=== PATIENT | female | born 1985 | race Hispanic/Latino ===

== ENCOUNTER 2017-10-03 13:34 | Emergency (ER) | payer BC ==
[2017-10-03] MEDS ORDERED: HYDROCODONE/APAP 5/325 MG TAB ONE (13:55)
--- NOTE | 2017-10-03 14:44 | RAD REPORT ---
EXAM DESCRIPTION: RAD - Ankle Right 3 View - 10/03/2017 2:33 pm CLINICAL HISTORY: Pain and swelling. COMPARISON: None. FINDINGS: Moderate soft tissue swelling is seen adjacent to the lateral malleolus. No acute fracture or dislocation seen.
--- NOTE | 2017-10-03 14:54 | EDPHYS ---
Physician Documentation [facility] Name: Carli Jang Age: 32 yrs Sex: Female : 1985 Arrival Date: 10/03/2017 Time: 13:36 Bed 17 Private MD: None, None ED Physician Rohan Lee HPI: 10/03 14:08 This 32 yrs old Female presents to ER via Ambulatory with complaints of Ankle kb Injury. 14:08 The patient presents with pain, that is acute. The complaints affect the right ankle. kb Onset: The symptoms/episode began/occurred just prior to arrival. Context: The problem was sustained at home, resulted from twisting while walking, The patient can partially bear weight on the affected extremity. the patient is able to ambulate. Associated signs and symptoms: Pertinent positives: swelling, Pertinent negatives: calf tenderness, fever, nausea, numbness, rash, tingling, vomiting, warmth, weakness. Modifying factors: The symptoms are alleviated by nothing, the symptoms are aggravated by nothing. Severity of symptoms: At their worst the symptoms were moderate, in the emergency department the symptoms are unchanged. The patient has not experienced similar symptoms in the past. The patient has not recently seen a physician. DITCHER: 13:47 LMP 09/08/2017 em Historical: - Allergies: 13:47 No Known Allergies; em - Home Meds: 13:47 amlodipine oral [Active]; metoprolol tartrate oral [Active]; em - PMHx: 13:47 Hypertension; em - PSHx: 13:47 None; em - Immunization history:: Adult Immunizations up to date. - Social history:: Smoking status: Patient/guardian denies using tobacco. ROS: 14:08 Constitutional: Negative for fever, chills, and weight loss, ENT: Negative for injury, kb pain, and discharge, Neck: Negative for injury, pain, and swelling, Cardiovascular: Negative for chest pain, palpitations, and edema, Respiratory: Negative for shortness of breath, cough, wheezing, and pleuritic chest pain, Abdomen/GI: Negative for abdominal pain, nausea, vomiting, diarrhea, and constipation, Back: Negative for injury and pain, : Negative for injury, bleeding, discharge, and swelling, Skin: Negative for injury, rash, and discoloration, Neuro: Negative for headache, weakness, numbness, tingling, and seizure. 14:11 MS/extremity: Positive for injury or acute deformity, pain, swelling, tenderness, of kb the right ankle. Exam: 14:07 Constitutional: This is a well developed, well nourished patient who is awake, alert, kb and in no acute distress. Head/Face: Normocephalic, atraumatic. Chest/axilla: Normal chest wall appearance and motion. Nontender with no deformity. No lesions are appreciated. Cardiovascular: Regular rate and rhythm with a normal S1 and S2. No gallops, murmurs, or rubs. Normal PMI, no JVD. No pulse deficits. Respiratory: Lungs have equal breath sounds bilaterally, clear to auscultation and percussion. No rales, rhonchi or wheezes noted. No increased work of breathing, no retractions or nasal flaring. Abdomen/GI: Soft, non-tender, with normal bowel sounds. No distension or tympany. No guarding or rebound. No evidence of tenderness throughout. Back: No spinal tenderness. No costovertebral tenderness. Full range of motion. Skin: Warm, dry with normal turgor. Normal color with no rashes, no lesions, and no evidence of cellulitis. Neuro: Awake and alert, GCS 15, oriented to person, place, time, and situation. Cranial nerves II-XII grossly intact. Motor strength 5/5 in all extremities. Sensory grossly intact. Cerebellar exam normal. Normal gait. 14:11 Musculoskeletal/extremity: Extremities: grossly normal except: noted in the right kb ankle: pain, swelling, tenderness, ROM: limited active range of motion due to pain, in the right ankle, Circulation is intact in all extremities. Sensation intact. Weight bearing: can bear weight with assistance only. Vital Signs: 13:47 BP 156 / 85; Pulse 87; Resp 18; Temp 98.4(O); Pulse Ox 97% on R/A; Weight 112.49 kg; em Height 5 ft. 8 in. (172.72 cm); Pain 10/10; 15:00 BP 135 / 88; Pulse 79; Resp 17; Pulse Ox 98% on R/A; rk2 13:47 Body Mass Index 37.71 (112.49 kg, 172.72 cm) em MDM: 13:44 Patient medically screened. 14:07 Data reviewed: vital signs, nurses notes. Data interpreted: Pulse oximetry: on room air kb is 97 %. Interpretation: normal. 14:52 Counseling: I had a detailed discussion with the patient and/or guardian regarding: the kb historical points, exam findings, and any diagnostic results supporting the discharge/admit diagnosis, radiology results, the need for outpatient follow up, a orthopedic surgeon, to return to the emergency department if symptoms worsen or persist or if there are any questions or concerns that arise at home. 10/03 13:44 Order name: Ankle Right 3 View XRAY; Complete Time: 14:45 kb 10/03 14:53 Order name: Solitario Wrap; Complete Time: 15:17 kb 10/03 14:53 Order name: Crutches; Complete Time: 15:17 kb Administered Medications: 14:00 Drug: [place] 5 mg-325 mg 1 tabs Route: PO; em 14:52 Follow up: Response: No adverse reaction; Pain is decreased em Disposition: 10/03/17 14:53 Discharged to Home. Impression: Sprain of other ligament of right ankle. - Condition is Stable. - Discharge Instructions: Ankle Sprain, [id number]. - Prescriptions for Diclofenac Sodium 75 mg Oral Tablet, Delayed Release (E.C.) - take 1 tablet by ORAL route 2 times per day As needed; 30 tablet. - Medication Reconciliation Form, Thank You Letter, Antibiotic Education, Prescription Opioid Use form. - Follow up: Emergency Department; When: As needed; Reason: Worsening of condition. Follow up: Private Physician; When: 2 - 3 days; Reason: Recheck today's complaints, Continuance of care, Re-evaluation by your physician. Addendum: 10/05/2017 08:48 Co-signature as Attending Physician, Rohan Lee MD I agree with the assessment and c fernandez plan of care. Signatures: Dispatcher [employer] Angely Saldivar, HONING MACHINE OPERATOR TOOL-C HONING MACHINE OPERATOR TOOL-Rohan Corral MD MD cha Munoz, Edgar, PROGRAMMER DEVELOPER PROGRAMMER DEVELOPER em Michell Duarte, RN RN rk2 Corrections: (The following items were deleted from the chart) 10/03 14:11 14:08 Constitutional: Negative for fever, chills, and weight loss, ENT: Negative for kb injury, pain, and discharge, Neck: Negative for injury, pain, and swelling, Cardiovascular: Negative for chest pain, palpitations, and edema, Respiratory: Negative for shortness of breath, cough, wheezing, and pleuritic chest pain, Back: Negative for injury and pain, : Negative for injury, bleeding, discharge, and swelling, MS/Extremity: Negative for injury and deformity, Skin: Negative for injury, rash, and discoloration, Neuro: Negative for headache, weakness, numbness, tingling, and seizure, kb 14:11 14:08 Abdomen/GI: Positive for abdominal pain, nausea, vomiting, and diarrhea, Negative kb for constipation, abdominal cramps, abdominal distension, anorexia, kb 14:12 14:07 Constitutional: This is a well developed, well nourished patient who is awake, kb alert, and in no acute distress. Head/Face: Normocephalic, atraumatic. Chest/axilla: Normal chest wall appearance and motion. Nontender with no deformity. No lesions are appreciated. Cardiovascular: Regular rate and rhythm with a normal S1 and S2. No gallops, murmurs, or rubs. Normal PMI, no JVD. No pulse deficits. Respiratory: Lungs have equal breath sounds bilaterally, clear to auscultation and percussion. No rales, rhonchi or wheezes noted. No increased work of breathing, no retractions or nasal flaring. Back: No spinal tenderness. No costovertebral tenderness. Full range of motion. Skin: Warm, dry with normal turgor. Normal color with no rashes, no lesions, and no evidence of cellulitis. MS/ Extremity: Pulses equal, no cyanosis. Neurovascular intact. Full, normal range of motion. Neuro: Awake and alert, GCS 15, oriented to person, place, time, and situation. Cranial nerves II-XII grossly intact. Motor strength 5/5 in all extremities. Sensory grossly intact. Cerebellar exam normal. Normal gait. kb 14:12 14:07 Abdomen/GI: Inspection: abdomen appears normal, Bowel sounds: normal, in all kb quadrants, Palpation: soft, in all quadrants, moderate abdominal tenderness, in the right upper quadrant and left upper quadrant, kb
--- NOTE | 2017-10-03 14:54 | ER ---
Nurse's Notes [facility] Name: Carli Jang Age: 32 yrs Sex: Female : 1985 Arrival Date: 10/03/2017 Time: 13:36 Bed 17 Private MD: None, None Diagnosis: Sprain of other ligament of right ankle Presentation: 10/03 13:44 Presenting complaint: Patient states: was walking and rolled right ankle about an hour em ago, denies hitting head, swelling noted to the right ankle. Transition of care: patient was not received from another setting of care. Onset of symptoms was October 03, 2017. Initial Sepsis Screen: Does the patient meet any 2 criteria? No. Patient's initial sepsis screen is negative. Does the patient have a suspected source of infection? No. Patient's initial sepsis screen is negative. Care prior to arrival: None. 13:44 Method Of Arrival: Ambulatory em 13:48 Acuity: CHRISTOPHER 4 la1 Triage Assessment: 13:49 General: Appears in no apparent distress. uncomfortable, Behavior is cooperative, em anxious. Pain: Complains of pain in right lateral malleolus Pain currently is 10 out of 10 on a pain scale. Quality of pain is described as sharp, throbbing. Musculoskeletal: Range of motion: intact in right ankle Swelling present in right lateral malleolus. PHYSICIAN PRIMARY CARE SPORTS MEDICINE: 13:47 LMP 09/08/2017 em Historical: - Allergies: 13:47 No Known Allergies; em - Home Meds: 13:47 amlodipine oral [Active]; metoprolol tartrate oral [Active]; em - PMHx: 13:47 Hypertension; em - PSHx: 13:47 None; em - Immunization history:: Adult Immunizations up to date. - Social history:: Smoking status: Patient/guardian denies using tobacco. Screenin:49 Abuse screen: Denies threats or abuse. Nutritional screening: No deficits noted. em Tuberculosis screening: No symptoms or risk factors identified. Fall Risk None identified. Assessment: 13:50 General: Appears in no apparent distress. uncomfortable, Behavior is cooperative, em anxious. Pain: Complains of pain in right foot Pain currently is 10 out of 10 on a pain scale. Quality of pain is described as throbbing. Neuro: Level of Consciousness is awake, alert, obeys commands, Oriented to person, place, time, situation. Cardiovascular: Capillary refill < 3 seconds Patient's skin is warm and dry. Respiratory: Airway is patent Respiratory effort is even, unlabored, Respiratory pattern is regular, symmetrical. GI: Abdomen is round. : No signs and/or symptoms were reported regarding the genitourinary system. EENT: No signs and/or symptoms were reported regarding the EENT system. Derm: Skin is intact, Skin is pink, warm \T\ dry. Musculoskeletal: Range of motion: limited in right ankle. 13:55 Reassessment: Patient appears in no apparent distress at this time. No changes from iw previously documented assessment. I agree with above assessment by Ferdinand Ca LVN. 14:50 Reassessment: Patient appears in no apparent distress at this time. Patient and/or em family updated on plan of care and expected duration. Pain level reassessed. Patient is alert, oriented x 3, equal unlabored respirations, skin warm/dry/pink. 15:18 Reassessment: Solitario wrap placed on right ankle... educated on crutches. Pt. was able to rk2 ambulate out on her own without difficulty. Vital Signs: 13:47 BP 156 / 85; Pulse 87; Resp 18; Temp 98.4(O); Pulse Ox 97% on R/A; Weight 112.49 kg; em Height 5 ft. 8 in. (172.72 cm); Pain 10/10; 15:00 BP 135 / 88; Pulse 79; Resp 17; Pulse Ox 98% on R/A; rk2 13:47 Body Mass Index 37.71 (112.49 kg, 172.72 cm) em ED Course: 13:36 Patient arrived in ED. mr 13:36 None, None is Private Physician. mr 13:38 [facility]C [facility] kb 13:38 Rohan Lee MD is Attending Physician. kb 13:44 Ferdinand Ca LVN is Primary Nurse. em 13:47 Arm band placed on. em 13:48 Triage completed. la1 13:49 No provider procedures requiring assistance completed. Patient did not have IV access em during this emergency room visit. 13:50 Patient has correct armband on for positive identification. Bed in low position. Call em light in reach. Side rails up X 1. Adult w/ patient. 14:33 Ankle Right 3 View XRAY In Process Unspecified. EDMS Administered Medications: 14:00 Drug: [place] 5 mg-325 mg 1 tabs Route: PO; em 14:52 Follow up: Response: No adverse reaction; Pain is decreased em Outcome: 14:53 Discharge ordered by . gabby 15:19 Discharged to home ambulatory. rk2 15:19 Condition: good 15:19 Discharge instructions given to patient, Prescriptions given X 1. 15:20 Patient left the ED. rk2 Signatures: Dispatcher [employer] EDMS Angely Diaz, SPECTRAL SCIENTIST-C SPECTRAL SCIENTIST-CkHilda Gotti mr Roby, Ferdinand, REFERENCE DATA EXPERT REFERENCE DATA EXPERT em Liliam Flores, RN RN iw Rod Melendez RN RN laMichell Rivera RN RN rk2 Corrections: (The following items were deleted from the chart) 14:10 13:47 LMP 08/25/2017 em em
== END 2017-10-03 15:20 | disposition home or self-care (01) ==
LOC: ER 13:34
DX: S93.491A Sprain of other ligament of right ankle, initial encounter (principal); X50.1XXA Overexertion from prolonged static or awkward postures, initial encounter; Y93.01 Activity, walking, marching and hiking; Y92.009 Unspecified place in unspecified non-institutional (private) residence as the place of occurrence of the external cause; I10 Essential (primary) hypertension
CPT/HCPCS: 99283

== ENCOUNTER 2020-08-27 04:03 | Emergency (ER) | payer BC ==
--- OUTSIDE RECORDS SUMMARY | 2020-08-27 04:05 | XMS REPORT | Continuity of Care Document ---
:1985 Author Organization [facility] t Address [address] [place] [address] [address] [place] [address] Care Team Providers Name Role Phone Ramon BOTELLOP Renu Attending Clinician Doctor Unassigned, Name Attending Clinician Unavailable Problems This patient has no known problems. Allergies, Adverse Reactions, Alerts This patient has no known allergies or adverse reactions. Medications This patient has no known medications. Procedures This patient has no known procedures. Encounters Start End Encounter Admission Attending Care Care Encounter Source Date/Time Date/Time Type Type Clinicians Facility Department ID 2020-08-24 2020-08-24 Emergency Ramon [facility] [id number] 15:43:00 19:17:00 Horace Zarate [id number] [place] [id number] [place] [id number] 2020-08-24 2020-08-24 Orders Doctor [place] [id number] 00:00:00 00:00:00 Only UnassignedSIMEON [id number] [place] [id number] Results This patient has no known results.
[2020-08-27] MEDS ORDERED: NA CHLORIDE 0.9% 1,000 ML ONE (04:36)
[2020-08-27] MEDS ORDERED: ONDANSETRON 4 MG/2 ML VIAL ONE (04:36)
[2020-08-27] MEDS ORDERED: MORPHINE 4 MG/ML SYR ONE ×2 (04:36→07:07)
[2020-08-27 04:39] LABS: Absolute Lymphocytes (CBC) 3.2 K/uL (0.7-4.9); Basophils % 0.5 % (0-1.3); Lymphocytes % 29.7 % (15.3-44.8); MPV 10.4 fL (7.6-11.3)
[2020-08-27 04:58] LABS: ALT/SGPT 116 U/L (12-78); AST/SGOT 49 U/L (15-37); Albumin 3.6 g/dL (3.4-5.0); Alkaline Phosphatase 121 U/L (45-117); BUN Blood Urea Nitrogen 9 mg/dL (7-18); Bicarbonate 23 mmol/L (21-32); Bilirubin Direct < 0.1 mg/dL (0-0.2); Bilirubin Total 0.4 mg/dL (0.2-1.0); Glucose Level 101 mg/dL (74-106); Lipase 120 U/L (73-393); Potassium 3.7 mmol/L (3.5-5.1); Sodium Level 140 mmol/L (136-145)
[2020-08-27 05:52] LABS: Urine Specific Gravity >1.030 (1.005-1.030)
[2020-08-27 05:54] LABS: Urine Blood 2+ (NEG); Urine Glucose NEGATIVE (NEG); Urine Protein NEGATIVE (NEG); Urine Specific Gravity >1.030 (1.005-1.030); Urine pH 5.5 (5.0-7.0)
--- NOTE | 2020-08-27 08:22 | RAD REPORT ---
EXAM DESCRIPTION: US - Abdomen Exam Limited - 08/27/2020 7:34 am CLINICAL HISTORY: RUQ pain;Abd pain COMPARISON: No comparisons FINDINGS: The gallbladder demonstrates numerous shadowing gallstones and gallbladder sludge. No stacey cholecystic fluid or gallbladder wall thickening. The common bile duct is normal measuring 3 mm. The liver demonstrates no findings of intrahepatic biliary dilatation. IMPRESSION: Cholelithiasis.
--- NOTE | 2020-08-27 08:41 | ER ---
Nurse's Notes [facility] Name: Carli Jang Age: 35 yrs Sex: Female : 1985 Arrival Date: 08/27/2020 Time: 04:03 Bed 19 Private MD: Diagnosis: Cholelithiasis Presentation: 08/27 04:10 Chief complaint: Patient states: my gallbladder is hurting and vomiting started 3 AM rr5 today. recently diagnosed with stone in my gallbladder last Thursday, the pain is on and off but now it gets worse. 04:10 Coronavirus screen: Client denies travel out of the [place] in the last 14 days. At this rr5 time, the client does not indicate any symptoms associated with coronavirus-19. Ebola Screen: Patient negative for fever greater than or equal to 101.5 degrees Fahrenheit, and additional compatible Ebola Virus Disease symptoms Patient denies exposure to infectious person. Patient denies travel to an Ebola-affected area in the 21 days before illness onset. Initial Sepsis Screen: Does the patient meet any 2 criteria? No. Patient's initial sepsis screen is negative. Does the patient have a suspected source of infection? No. Patient's initial sepsis screen is negative. Risk Assessment: Do you want to hurt yourself or someone else? Patient reports no desire to harm self or others. Onset of symptoms was August 27, 2020 at 03:00. 04:10 Method Of Arrival: Ambulatory rr5 04:10 Acuity: CHRISTOPHER 3 rr5 SOLAR INSTALLATION SUPERVISOR: 04:34 [facility] 08/05/2020 rr5 Historical: - Allergies: 04:16 No Known Allergies; rr5 - Home Meds: 04:16 Metoprolol Tartrate Oral [Active]; Lexapro Oral [Active]; rr5 - PMHx: 04:16 Hypertension; gallstone; stroke; rr5 - PSHx: 04:16 None; rr5 - Immunization history:: Adult Immunizations up to date. - Social history:: Smoking status: unknown. Screenin:34 Abuse screen: Denies threats or abuse. Denies injuries from another. Nutritional rr5 screening: No deficits noted. Tuberculosis screening: No symptoms or risk factors identified. Fall Risk IV access (20 points). Total Eugene Fall Scale indicates No Risk (0-24 pts). Assessment: 04:10 General: Appears in no apparent distress. uncomfortable, Behavior is calm, cooperative, rr5 appropriate for age. 04:10 Pain: Complains of pain in right upper quadrant Pain radiates to left upper quadrant rr5 Pain currently is 10 out of 10 on a pain scale. Quality of pain is described as aching, Pain began gradually, Is intermittent. Neuro: Level of Consciousness is awake, alert, obeys commands, Oriented to person, place, time, situation. Cardiovascular: Capillary refill < 3 seconds Patient's skin is warm and dry. Respiratory: Airway is patent Respiratory effort is even, labored, Respiratory pattern is regular, symmetrical. GI: Abdomen is round non-distended, Reports upper abdominal pain, nausea, vomiting. : No signs and/or symptoms were reported regarding the genitourinary system. EENT: No signs and/or symptoms were reported regarding the EENT system. Derm: Skin is intact, is healthy with good turgor, Skin temperature is warm. Musculoskeletal: Capillary refill < 3 seconds. 05:30 Reassessment: Patient appears in no apparent distress at this time. Patient is alert, rr5 oriented x 3, equal unlabored respirations, skin warm/dry/pink. back from CT scan Patient states symptoms have improved. 06:24 Reassessment: Patient appears in no apparent distress at this time. resting eyes closed rr5 breathing spontaneously at room air. 06:50 Reassessment: Patient appears in no apparent distress at this time. reassessment done rr5 by ED Provider patient complaint of abdominal pain with order made and carried out. 08:00 Reassessment: Patient appears in no apparent distress at this time. Patient and/or iw family updated on plan of care and expected duration. Pain level reassessed. Patient is alert, oriented x 3, equal unlabored respirations, skin warm/dry/pink. Vital Signs: 04:10 BP 148 / 94; Pulse 74; Resp 17; Temp 97.6; Pulse Ox 100% ; Weight 117.93 kg; Height 5 rr5 ft. 8 in. (172.72 cm); Pain 10/10; 05:30 BP 127 / 71; Pulse 68; Resp 16; Pulse Ox 98% ; Pain 6/10; rr5 06:24 BP 129 / 80; Pulse 61; Resp 18; Pulse Ox 99% ; rr5 06:50 BP 115 / 68; Pulse 67; Resp 19; Pulse Ox 98% ; Pain 6/10; rr5 08:57 BP 124 / 78; Pulse 71; Resp 16; Pulse Ox 98% on R/A; iw 04:10 Body Mass Index 39.53 (117.93 kg, 172.72 cm) rr5 ED Course: 04:00 Patient has correct armband on for positive identification. Bed in low position. Call rr5 light in reach. parts professional on. Pulse ox on. NIBP on. 04:03 Patient arrived in ED. am4 04:05 Taqueria Lerma, RN is Primary Nurse. rr5 04:07 Montana Dinero MD is Attending Physician. mh7 04:10 Arm band placed on right wrist. rr5 04:13 Inserted saline lock: 20 gauge in right forearm, using aseptic technique. Blood ds4 collected. 04:15 Triage completed. rr5 04:34 EKG done, by ED staff, reviewed by Montana Dinero MD. rr5 05:35 No provider procedures requiring assistance completed. rr5 05:46 CT Abd/Pelvis - IV Contrast Only In Process Unspecified. EDMS 07:34 US Abdomen Limited In Process Unspecified. EDMS 07:42 Attending Physician role handed off by Montana Dinero MD rn 07:42 Pierce Harden MD is Attending Physician. rn 08:40 Rancho Gotti MD is Referral Physician. rn 08:57 IV discontinued, intact, bleeding controlled, No redness/swelling at site. Pressure iw dressing applied. Administered Medications: 04:30 Drug: Zofran (Ondansetron) 4 mg Route: IVP; Site: right forearm; rr5 05:34 Follow up: Response: No adverse reaction rr5 04:33 Drug: morphine 4 mg {Note: rass 0.} Route: IVP; Site: right forearm; rr5 05:34 Follow up: Response: No adverse reaction; Pain is decreased; RASS: Alert and Calm (0) rr5 04:34 Drug: NS 0.9% 1000 ml Route: IV; Rate: 1000 ml; Site: right forearm; rr5 05:35 Follow up: Response: No adverse reaction; IV Status: Completed infusion; IV Intake: rr5 1000ml 06:52 Drug: morphine 4 mg {Note: rass 0.} Route: IVP; Site: right forearm; rr5 08:58 Follow up: Response: No adverse reaction; Pain is decreased iw Intake: 05:35 IV: 1000ml; Total: 1000ml. rr5 Outcome: 08:40 Discharge ordered by . rn 08:57 Discharged to home ambulatory. iw 08:57 Condition: good 08:57 Discharge instructions given to patient, Instructed on discharge instructions, follow up and referral plans. medication usage, Demonstrated understanding of instructions, follow-up care, medications, Prescriptions given X 2. 08:58 Patient left the ED. iw Signatures: Dispatcher [employer] EDLiliam Jin RN RN iw Pierce Harden MD MD rn Swanson, Donovan ds4 Taqueria Lerma RN RN rr5 Montana Dinero MD MD 7 Cass Flores 4
--- NOTE | 2020-08-27 08:41 | EDPHYS ---
Physician Documentation [facility] Name: Carli Jang Age: 35 yrs Sex: Female : 1985 Arrival Date: 08/27/2020 Time: 04:03 Bed 19 Private MD: ED Physician Pierce Harden HPI: 08/27 04:28 This 35 yrs old Female presents to ER via Ambulatory with complaints of mh7 GALLBLADDER. 04:28 The patient presents with abdominal pain in the right upper quadrant. Onset: The mh7 symptoms/episode began/occurred today, at 03:00. The symptoms radiate to the right flank. Associated signs and symptoms: Pertinent positives: nausea and vomiting, Pertinent negatives: anorexia, blood in stools, chest pain, constipation, diarrhea, dysuria, fever, headache, hematuria, palpitations, shortness of breath, vaginal discharge, vomiting blood. The symptoms are described as intermittent, vague, waxing/waning. Modifying factors: The symptoms are alleviated by nothing, the symptoms are aggravated by nothing. Severity of pain: At its worst the pain was moderate today, in the emergency department the pain is unchanged. The patient has been recently seen by a physician: 3 day(s) ago. 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 - Social history:: Smoking status: unknown. ROS: 04:28 Constitutional: Negative for fever, chills, and weight loss, Eyes: Negative for injury, mh7 pain, redness, and discharge, ENT: Negative for injury, pain, and discharge, Neck: Negative for injury, pain, and swelling, Cardiovascular: Negative for chest pain, palpitations, and edema, Respiratory: Negative for shortness of breath, cough, wheezing, and pleuritic chest pain, Back: Negative for injury and pain, : Negative for injury, bleeding, discharge, and swelling, MS/Extremity: Negative for injury and deformity, Skin: Negative for injury, rash, and discoloration, Neuro: Negative for headache, weakness, numbness, tingling, and seizure, Psych: Negative for depression, anxiety, suicide ideation, homicidal ideation, and hallucinations, Allergy/Immunology: Negative for hives, rash, and allergies, Endocrine: Negative for neck swelling, polydipsia, polyuria, polyphagia, and marked weight changes, Hematologic/Lymphatic: Negative for swollen nodes, abnormal bleeding, and unusual bruising. Exam: 04:28 Constitutional: This is a well developed, well nourished patient who is awake, alert, mh7 and in no acute distress. Head/Face: Normocephalic, atraumatic. Eyes: Pupils equal round and reactive to light, extra-ocular motions intact. Lids and lashes normal. Conjunctiva and sclera are non-icteric and not injected. Cornea within normal limits. Periorbital areas with no swelling, redness, or edema. Neck: Trachea midline, no thyromegaly or masses palpated, and no cervical lymphadenopathy. Supple, full range of motion without nuchal rigidity, or vertebral point tenderness. No Meningismus. Chest/axilla: Normal chest wall appearance and motion. Nontender with no deformity. No lesions are appreciated. Cardiovascular: Regular rate and rhythm with a normal S1 and S2. No gallops, murmurs, or rubs. Normal PMI, no JVD. No pulse deficits. Respiratory: Lungs have equal breath sounds bilaterally, clear to auscultation and percussion. No rales, rhonchi or wheezes noted. No increased work of breathing, no retractions or nasal flaring. Abdomen/GI: Soft, non-tender, with normal bowel sounds. No distension or tympany. No guarding or rebound. No evidence of tenderness throughout. Back: No spinal tenderness. No costovertebral tenderness. Full range of motion. Skin: Warm, dry with normal turgor. Normal color with no rashes, no lesions, and no evidence of cellulitis. MS/ Extremity: Pulses equal, no cyanosis. Neurovascular intact. Full, normal range of motion. Neuro: Awake and alert, GCS 15, oriented to person, place, time, and situation. Cranial nerves II-XII grossly intact. Motor strength 5/5 in all extremities. Sensory grossly intact. Cerebellar exam normal. Normal gait. Psych: Awake, alert, with orientation to person, place and time. Behavior, mood, and affect are within normal limits. Vital Signs: 04:10 BP 148 / 94; Pulse 74; Resp 17; Temp 97.6; Pulse Ox 100% ; Weight 117.93 kg; Height 5 rr5 ft. 8 in. (172.72 cm); Pain 10/10; 05:30 BP 127 / 71; Pulse 68; Resp 16; Pulse Ox 98% ; Pain 6/10; rr5 06:24 BP 129 / 80; Pulse 61; Resp 18; Pulse Ox 99% ; rr5 06:50 BP 115 / 68; Pulse 67; Resp 19; Pulse Ox 98% ; Pain 6/10; rr5 08:57 BP 124 / 78; Pulse 71; Resp 16; Pulse Ox 98% on R/A; iw 04:10 Body Mass Index 39.53 (117.93 kg, 172.72 cm) rr5 MDM: 07:07 Transition of care: After a detail discussion of the patient's case, care is mh7 transferred to Pierce Harden MD. 07:42 Patient medically screened. rn 07:42 ED course: Signed out to me by Dr. Dinero, pending ultrasound of gallbladder, reports rn CT ok, pt with hx of gallstones, stable vitals. . 08:38 Differential diagnosis: cholecystitis, Cholelithiasis, gastritis, gastroesophageal rn reflux disease, non-specific abd pain, pancreatitis. Data reviewed: vital signs, nurses notes, lab test result(s), radiologic studies, CT scan, ultrasound, and as a result, I will discharge patient. Counseling: I had a detailed discussion with the patient and/or guardian regarding: the historical points, exam findings, and any diagnostic results supporting the discharge/admit diagnosis, lab results, radiology results, the need for outpatient follow up, to return to the emergency department if symptoms worsen or persist or if there are any questions or concerns that arise at home. Response to treatment: the patient's symptoms have markedly improved after treatment, Sleeping comfortably when I walked in. , and as a result, I will discharge patient. Special discussion: Based on the patient's Hx, exam, and Dx evaluation, there is no indication for emergent surgery or inpatient Tx. It is understood by the patient/guardian that if the Sx's persist or worsen they need to return immediately for re-evaluation. I discussed with the patient/guardian in detail that at this point there is no indication for admission to the hospital. It is understood, however, that if the symptoms persist or worsen the patient needs to return immediately for re-evaluation. Based on the history and exam findings, there is no indication for further emergent testing or inpatient evaluation. I discussed with the patient/guardian the need to see the general surgeon for further evaluation of the symptoms. ED course: No acute findings on u/s gallbladder, stable vitals, sleeping comfortably, will dc home with gen surgery f/u for outpatient cholecystectomy.. 08/27 04:17 Order name: Basic Metabolic Panel; Complete Time: 05:39 rr5 08/27 04:17 Order name: CBC with Diff; Complete Time: 05:39 rr5 08/27 04:17 Order name: Hepatic Function; Complete Time: 05:39 rr5 08/27 04:17 Order name: Lipase; Complete Time: 05:39 rr5 08/27 04:33 Order name: Urine Dipstick--Ancillary (enter results); Complete Time: 06:44 ds4 08/27 04:34 Order name: Urine --Ancillary (enter results); Complete Time: 06:44 ds4 08/27 04:23 Order name: CT Abd/Pelvis - IV Contrast Only 7 08/27 04:34 Order name: Urine Microscopic Only 4 08/27 07:03 Order name: US Abdomen Limited; Complete Time: 08:32 mh7 08/27 04:17 Order name: IV Saline Lock; Complete Time: 04:18 rr5 08/27 04:17 Order name: Labs collected and sent; Complete Time: 04:18 rr5 08/27 04:17 Order name: Urine Dipstick-Ancillary (obtain specimen); Complete Time: 04:32 rr5 08/27 04:17 Order name: Urine Test (obtain specimen); Complete Time: 04:32 rr5 08/27 04:22 Order name: EKG - Nurse/Tech; Complete Time: 04:34 mh7 Administered Medications: 04:30 Drug: Zofran (Ondansetron) 4 mg Route: IVP; Site: right forearm; rr5 05:34 Follow up: Response: No adverse reaction rr5 04:33 Drug: morphine 4 mg {Note: rass 0.} Route: IVP; Site: right forearm; rr5 05:34 Follow up: Response: No adverse reaction; Pain is decreased; RASS: Alert and Calm (0) rr5 04:34 Drug: NS 0.9% 1000 ml Route: IV; Rate: 1000 ml; Site: right forearm; rr5 05:35 Follow up: Response: No adverse reaction; IV Status: Completed infusion; IV Intake: rr5 1000ml 06:52 Drug: morphine 4 mg {Note: rass 0.} Route: IVP; Site: right forearm; rr5 08:58 Follow up: Response: No adverse reaction; Pain is decreased iw Disposition: 08/27/20 08:40 Discharged to Home. Impression: Cholelithiasis. - Condition is Stable. - Discharge Instructions: Cholelithiasis. - Prescriptions for Zofran ODT 4 mg Oral tablet,disintegrating - place 1 tablet by TRANSLINGUAL route every 8 hours As needed; 20 tablet. Tylenol- Codeine #3 300-30 mg Oral Tablet - take 1 tablet by ORAL route every 4-6 hours As needed; 15 tablet. - Work release form, Medication Reconciliation Form, Thank You Letter, Antibiotic Education, Prescription Opioid Use form. - Follow up: Rancho Gotti MD; When: As needed; Reason: Recheck today's complaints, Re-evaluation by your physician. - Problem is an ongoing problem. - Symptoms have improved. Signatures: Dispatcher [employer] EDLiliam Jin RN RN iw Pierce Harden MD MD rn Attema, Lee, [employer]1 [employer] Lerma RN RN rr5 [place] Dinero MD MD 7 Corrections: (The following items were deleted from the chart) 08:58 08:40 08/27/2020 08:40 Discharged to Home. Impression: Cholelithiasis. Condition is iw Stable. Forms are Medication Reconciliation Form, Thank You Letter, Antibiotic Education, Prescription Opioid Use. Follow up: Rancho Gotti; When: As needed; Reason: Recheck today's complaints, Re-evaluation by your physician. Problem is an ongoing problem. Symptoms have improved. rn
[2020-08-27 09:03] VITALS: TEMP 97.6
[2020-08-27 09:07] VITALS: O2SAT 98
[2020-08-27 09:08] VITALS: BP 124/78
--- NOTE | 2020-08-27 13:50 | RAD REPORT ---
EXAM DESCRIPTION: CT Abdomen and Pelvis COMPARISON: None. CLINICAL HISTORY: [facility] MAIN Abd pain;Nausea / vomiting TECHNIQUE: CT of the abdomen and pelvis was acquired with IV contrast material. Coronal and sagitt al reconstructions were obtained. Automated exposure control was utilized on this examination as a dose lowering technique. FINDINGS: Lung bases: Clear.Liver: A 2.0 cm hypoenhancing region to the right of the gallbladder fos sa is favored to represent focal fat deposition or hemangioma. A peripherally enhancing lesion of hep atic segment 6 measuring 1.7 cm on series 401 image 28 likely represents a hemangioma.Gallbladder and biliary: Normal gallbladder. Unremarkable biliary tree.Pancreas: Normal.Spleen: Normal.Adrenal gland s: Normal adrenal glands.Kidneys: Normal kidneysStomach and Small Bowel: The stomach and small bowel are normal.Urinary bladder: Normal.Uterus and Adnexa: There is a 5.6 cm cystic structure to the left of the cervix. This is distinct from the left ovary.Colon and Appendix: The colon is unremarkable. No evidence of appendicitis.Retroperitoneum and lymph nodes: Normal.Vascular: Normal.Peritoneal cavity: No ascites or free air.Musculoskeletal and soft tissues: Soft tissues are unremarkable. No aggressiv e bone lesions. No compression fracture. IMPRESSION: 1. No acute intra-abdominal abnormality. 2. Hepatic hypodensities measure up to 2.0 cm and likely represent benign entities as discussed above . 3. A 5.6 cm cystic structure is at the left aspect of the cervix. This could represent a large naboth joby cyst, cystic cervicitis, or cystic cervical neoplasm. Recommend further evaluation with ultrasoun d and potentially contrast-enhanced MRI depending on ultrasound findings. Electronically signed by: Vignesh See MD 08/27/2020 6:05 AM CDT Due to temporary technical issues with the PACS/Fluency reporting system, reports are being signed by the in house radiologist without review as a courtesy to ensure prompt reporting. The interpreting r adiologist is fully responsible for the content of the report.
== END 2020-08-27 08:58 | disposition home or self-care (01) ==
LOC: ER 04:03
DX: K80.20 Calculus of gallbladder without cholecystitis without obstruction (principal); I10 Essential (primary) hypertension
CPT/HCPCS: 93005; 85025; 80048; 36415; 81025; 80076; 81003; 83690; 74177; 76705; Q9967; J7030; J2405; 96361; 96374; 96375; 99285

== ENCOUNTER 2020-08-30 11:29 | Day surgery (SDC) | payer BC ==
[2020-08-30 11:54] LABS: Specific Gravity 1.015 (1.005-1.030)
[2020-08-30] MEDS ORDERED: Ringers Lactate 1,000 ML IV ONE ×2 (12:04→14:57)
[2020-08-30] MEDS ORDERED: ACETAMINOPHEN 500 MG TAB ONE (12:23)
[2020-08-30] MEDS ORDERED: CELECOXIB 100 MG CAPSULE ONE (12:23)
[2020-08-30] MEDS: CEFOXITIN/SWI 1gm 2 GM/20 ML SYR ONE ×2 (12:26→12:55)
[2020-08-30] MEDS ORDERED: LIDOCAINE 2% MPF 5 ML VIAL ONE (12:31)
[2020-08-30] MEDS ORDERED: propofoL 200 MG/20 ML VIAL IV ONE (12:31)
[2020-08-30] MEDS ORDERED: FENTANYL CITR 100 MCG/2 ML ONE ×2 (12:31→14:04)
[2020-08-30] MEDS ORDERED: dexAMETHasone 10 MG/ML VIAL ONE (12:31)
[2020-08-30] MEDS ORDERED: MIDAZOLAM HCL 2 MG/2 ML INJ ONE (12:31)
[2020-08-30] MEDS ORDERED: ROCURONIUM 50 MG/5 ML VIAL IV ONE (12:31)
[2020-08-30] MEDS ORDERED: KETOROLAC 30 MG/ML INJ ONE (12:31)
[2020-08-30] MEDS ORDERED: ONDANSETRON 4 MG/2 ML VIAL ONE (12:32)
[2020-08-30] MEDS ORDERED: BUPIVACAINE 0.25% PF 10 ML VIAL ONE (12:32)
--- NOTE | 2020-08-30 14:03 | P.OP ---
Preoperative diagnosis: Chronic Cholecystitis with Cholelithiasis Postoperative diagnosis: Chronic Cholecystitis with Cholelithiasis Primary procedure: Laparoscopic Cholecystectomy Anesthesia: GETA + Local Estimated blood loss: <5cc Specimen: Gallbladder Findings: chronic cholecystitis, short cystic duct Complications: None Transferred to: Recovery Room Condition: Good
[2020-08-30] MEDS ORDERED: GLYCOPYRROLATE 0.2 MG/ML SYR ONE (14:06)
[2020-08-30] MEDS ORDERED: NEOSTIGMINE 1 MG/ML -5 ML ONE (14:07)
[2020-08-30] MEDS: HYDROMORPHONE HCL 1 MG/ML INJ ONE ×2 (14:30→14:35)
[2020-08-30] MEDS ORDERED: PROMETHAZINE INJ 25 MG/ML AMP ONE (14:39)
[2020-08-30] MEDS ORDERED: MEPERIDINE HCL 25 MG/ML SYR ONE (14:44)
--- NOTE | 2020-08-30 14:47 | OP ---
Date of Procedure: 08/30/2020 Surgeon: Rancho Gotti MD, Preoperative Diagnosis: Chronic cholecystitis with cholelithiasis. Postoperative Diagnosis: Chronic cholecystitis with cholelithiasis. Procedure Performed: Laparoscopic cholecystectomy. Anesthesia: General endotracheal plus local. Estimated Blood Loss: Less than 5 mL. Specimen: Gallbladder. Findings: Chronic cholecystitis, short cystic duct. Complication: None. Disposition: The patient was transferred to recovery room in good condition. Procedure In Detail: After informed consent was obtained, the patient was brought to the operating r oom, prepped and draped in the usual sterile fashion. After adequate anesthesia was achieved, suprau mbilical area was anesthetized with 0.25% Marcaine and sharply incised. A 5 mm 0-degree optical troca r was introduced in the abdomen without evidence of complication. Insufflation was obtained to 15 mm Hg at this time. There was no injury to vital structures upon entry to the abdomen. Three additiona l trocars were placed, 1 in the epigastric area and 2 in the right upper quadrant. All these trocars were similarly anesthetized and sharply incised. A 5 mm trocars was then placed under direct visual ization without evidence of complication. The umbilical trocar was then up-sized to a 12 mm under di rect visualization without evidence of complication. The patient was positioned head up right-side u p position. Ratcheted grasper was used to grasp the patient's gallbladder and was found to be quite encased within the omentum. Careful dissection was performed to mobilize the omentum off the anterio r surface of the gallbladder. This required meticulous dissection as the inflammatory scar tissue wa s from the fundus of the gallbladder extending all the way to the Andreia pouch of the gallbladder. After the gallbladder was placed toward the patient's right shoulder and dissection continued down u ntil ultimately the cystic duct and cystic artery were identified. A critical view of safety was obt ained at this time after completely skeletonizing 2 structures, which required extended amount of shayna e due to the significant scarring and fibrous tissue down this area. After this was mobilized and sk eletonized, double titanium clips were placed on the proximal side of both the cystic duct and cystic artery. On the distal side of the cystic duct and cystic artery, a single titanium clip was placed. Endo Yovani were then used to ligate the 2 structures. The gallbladder was then removed from the h epatic fossa without evidence of complication using electrocautery. The gallbladder was then placed in EndoCatch bag, removed through the umbilical trocar and sent off for pathologic examination. The abdomen was then copiously irrigated multiple times until completely clear. No leakage of bile or bl ood was appreciated at this point. No additional hemostatic measures were required. The effluent wa s suctioned out after the patient was positioned in neutral position. The gallbladder was sent off f or pathologic examination at this point after the removal with the EndoCatch bag through the umbilica l trocar. The area was inspected one last time. No additional hemostatic measures were required. T he umbilical trocar was removed. The umbilical trocar site was closed using a Alfonso-Marko suture passer with a 0 Vicryl in an interrupted fashion without evidence of complication. The abdomen was then completely desufflated under direct vision without evidence of complication. All remaining troc ars were removed. All skin incisions were copiously irrigated and dried and closed with 4-0 Monocryl in a running fashion. Dermabond was placed over top. The patient tolerated the procedure well with out evidence of complication, and the Alfonso-Marko was used to close the umbilical trocar site maksim or to skin closure with 0 Vicryl in an interrupted fashion with good approximation tissues. After al l skin incisions were closed, Dermabond was applied. The patient tolerated the procedure well withou t evidence of complication and transferred to PACU in good condition. All counts were correct at the end of the case. CLAUDIA/KLAUDIA Voice ID: [id number] Report ID: [id number]
[2020-08-30] MEDS ORDERED: HYDROCODONE/APAP 10/325 TAB ONE (16:01)
[2020-08-30 17:01] VITALS: BP 123/75; TEMP 97.2; O2SAT 99
== END 2020-08-30 16:50 | disposition home or self-care (01) ==
LOC: OR 11:29
PROVIDERS: ATTEND Surgery
PROC: 0FT44ZZ Resection of Gallbladder, Percutaneous Endoscopic Approach (ICD-10-PCS; principal; 2020-08-30 12:30)
DX: K80.10 Calculus of gallbladder with chronic cholecystitis without obstruction (principal); Z20.822 Contact with and (suspected) exposure to COVID-19
CPT/HCPCS: 81025; 88304; 47562; U0003; J2704; J2550; J2250; J3010 ×2; J1100; J2175; J1170; J2710; J7120 ×2; J2405